=== PATIENT | female | born 1965 | race Caucasian/White ===

== ENCOUNTER 2020-11-13 17:41 | Emergency (ER) | payer MEDICARE, MEDICAID ==
[~2020-11-13] VITALS: Ht 172.7 cm; Wt 90.9 kg
[~2020-11-13 17:41] MED LIST: AMLO10TA55 PO; CARI350T PO; HYDR-3971 PO; METO-408 PO
[2020-11-13 19:45] VITALS: BP 177/78
== END 2020-11-13 19:45 | disposition left against medical advice (07) ==
LOC: EMS 17:46
DX: T40.2X1A Poisoning by other opioids, accidental (unintentional), initial encounter (principal); I10 Essential (primary) hypertension; F17.210 Nicotine dependence, cigarettes, uncomplicated; Y92.89 Other specified places as the place of occurrence of the external cause
CPT/HCPCS: 93005; 99283; 99284

== ENCOUNTER 2024-10-13 15:47 | Inpatient (IN) | payer MEDICAID, MEDICARE, OTHER ==
[~2024-10-13] VITALS: Ht 172.7 cm; Wt 100.0 kg
[2024-10-13] MEDS ORDERED: 0.9% SODIUM CHLORIDE 10 ML SYRINGE IVP PRN (20:30)
[2024-10-13] MEDS: SODIUM CHLORIDE 0.9% 2,000 ML IV ONE (21:00)
[2024-10-13 21:59] LABS: APPEARANCE,URINE HAZY (CLEAR); GLUCOSE, URINE (UA) NEGATIVE (NEGATIVE); LEUKOCYTE ESTERASE ,URINE TRACE (NEGATIVE); NITRATE,URINE NEGATIVE (NEGATIVE); OCCULT BLOOD,URINE NEGATIVE (NEGATIVE); SPECIFIC GRAVITIY, URINE 1.032 (1.003-1.030)
[2024-10-13 22:00] LABS: PLATELET COUNT (AUTO) 212 K/uL (150-450); RED BLOOD CELL COUNT(AUTO) 4.08 MIL/uL (4.00-5.20); RED CELL DISTRIBUTION WIDTH 14.4 % (11.5-14.5); WHITE BLOOD COUNT (AUTO) 7.0 K/uL (4.5-11.0)
[2024-10-13 22:07] LABS: CALCIUM, TOTAL 8.8 mg/dL (8.8-10.5); CREATININE 1.03 mg/dL (0.60-1.30); GLOMERULAR FILTR. RATE CALC 54.0 mL/min (>60); GLUCOSE,RANDOM 91.0 mg/dL (70-110); SODIUM SERUM 142.0 mmol/L (136-145); UREA NITROGEN, BLOOD 17.0 mg/dL (7-18)
[2024-10-13 22:12] LABS: SQUAMOUS EPITHELIAL CELL,UR Few /LPF (None Seen)
[2024-10-13 22:15] LABS: LACTIC ACID 0.6 mmol/L (0.4-2.0)
[2024-10-13] MEDS: VANCOMYCIN 1GM/WATER(PEG/NADA) 200 ML IV ONE (22:52)
[2024-10-13] MEDS ORDERED: ZOLPIDEM TARTRATE 5 MG TABLET PO PRN (23:15)
[2024-10-13] MEDS ORDERED: ACETAMINOPHEN 325 MG TABLET PO PRN (23:15)
[2024-10-13] MEDS ORDERED: MAGNESIUM HYDROXIDE SUSPENSION 30 ML UDCUP PO PRN (23:15)
[2024-10-13] MEDS ORDERED: MORPHINE SULFATE 2 MG/ML SYRINGE IVP PRN (23:15)
[2024-10-13] MEDS ORDERED: HYDROCODONE/ACETAMINOPHEN 5-325 MG TABLET PO PRN (23:15)
[2024-10-13] MEDS ORDERED: BISACODYL 10 MG RECTAL RECTAL SUPPOSITORY PR PRN (23:15)
[2024-10-13] MEDS ORDERED: ONDANSETRON HCL 4 MG/2 ML VIAL IVP PRN (23:15)
[2024-10-14] MEDS: HEPARIN SODIUM,PORCINE 5,000 UNITS/ML VIAL SQ SCH (00:02)
[2024-10-14 03:18] VITALS: BP 172/84; PULSE 67; RESP 20; TEMP 97.7; O2SAT 100
[2024-10-14 07:33] LABS: PLATELET COUNT (AUTO) 189 K/uL (150-450); RED BLOOD CELL COUNT(AUTO) 3.97 MIL/uL (4.00-5.20); RED CELL DISTRIBUTION WIDTH 14.6 % (11.5-14.5); WHITE BLOOD COUNT (AUTO) 5.2 K/uL (4.5-11.0)
[2024-10-14 07:50] LABS: CALCIUM, TOTAL 8.0 mg/dL (8.8-10.5); CREATININE 0.83 mg/dL (0.60-1.30); GLOMERULAR FILTR. RATE CALC > 60 mL/min (>60); GLUCOSE,RANDOM 87 mg/dL (70-110); UREA NITROGEN, BLOOD 15 mg/dL (7-18)
[2024-10-14 07:56] LABS: SODIUM SERUM 143 mmol/L (136-145)
[2024-10-14] MEDS ORDERED: VANCOMYCIN 1GM/WATER(PEG/NADA) 200 ML IV SCH (08:00)
[2024-10-14 08:23] VITALS: BP 119/52; PULSE 64; RESP 19; TEMP 98.2; O2SAT 100
[2024-10-14] MEDS ORDERED: SODIUM CHLORIDE 0.9% 500 ML IV ONE (08:26)
[2024-10-14] MEDS: PANTOPRAZOLE SODIUM 40 MG DR TABLET PO SCH (08:35)
[2024-10-14] MEDS: DOCUSATE SODIUM 100 MG CAPSULE PO SCH (08:35)
[2024-10-14] MEDS: VANCOMYCIN 1.25 GM/WATER(PEG) 250 ML IV SCH (09:14)
[2024-10-14] MEDS ORDERED: BUPR1FIL5 SL (11:40)
[2024-10-14] MEDS ORDERED: COLL1PAC16 TP (11:40)
[2024-10-14] MEDS ORDERED: DULO20CA57 PO (11:46)
[2024-10-14] MEDS ORDERED: HYDR25TA2 PO (11:46)
[2024-10-14] MEDS ORDERED: CARV-165 PO (11:46)
[2024-10-14] MEDS ORDERED: ESTR-95 PO (11:46)
[2024-10-14] MEDS ORDERED: LOSA-382 PO (11:46)
[2024-10-14] MEDS ORDERED: ASPI-1450 PO (11:46)
[2024-10-14] MEDS ORDERED: LEVO25TA9 PO (11:46)
[2024-10-14] MEDS: ASPIRIN 81 MG CHEWABLE TABLET PO SCH (15:57)
[2024-10-14] MEDS: BUPRENORPHINE HCL/NALOXONE HCL 2-0.5 MG SUBLINGUAL TABLET SL SCH (15:57)
[2024-10-14] MEDS: DULoxetine HCL 20 MG CAPSULE PO SCH (16:45)
[2024-10-14 20:09] VITALS: BP_SYST 146; BP_SYST 160; BP_DIAS 75; BP_DIAS 79; PULSE 69; RESP 19; TEMP 97.7; O2SAT 99
[2024-10-15] MEDS: LEVOTHYROXINE SODIUM 25 MCG TABLET PO SCH (06:08)
[2024-10-15 06:29] VITALS: BP 155/73; PULSE 70; RESP 20; TEMP 97.5; O2SAT 97
[2024-10-15 07:18] LABS: PLATELET COUNT (AUTO) 183 K/uL (150-450); RED BLOOD CELL COUNT(AUTO) 4.19 MIL/uL (4.00-5.20); RED CELL DISTRIBUTION WIDTH 14.2 % (11.5-14.5); WHITE BLOOD COUNT (AUTO) 5.3 K/uL (4.5-11.0)
[2024-10-15 07:32] LABS: CALCIUM, TOTAL 8.1 mg/dL (8.8-10.5); CREATININE 0.95 mg/dL (0.60-1.30); GLOMERULAR FILTR. RATE CALC 60.0 mL/min (>60); GLUCOSE,RANDOM 107.0 mg/dL (70-110); SODIUM SERUM 142.0 mmol/L (136-145); UREA NITROGEN, BLOOD 12.0 mg/dL (7-18)
[2024-10-15 08:25] VITALS: BP 132/75; PULSE 64; RESP 19; TEMP 98.2; O2SAT 94
[2024-10-15] MEDS: LOSARTAN POTASSIUM 50 MG TABLET PO SCH (08:56)
[2024-10-15] MEDS ORDERED: LINE600T14 PO (14:49)
== END 2024-10-15 18:55 | DRG 601 ==
LOC: EMS 15:47 → EDH 10-14 00:53 → 6N 10-14 03:05
PROVIDERS: ADMIT Internal Medicine; ATTEND Internal Medicine
DX: N61.0 Mastitis without abscess (principal); I10 Essential (primary) hypertension; G89.29 Other chronic pain; E66.01 Morbid (severe) obesity due to excess calories; Z87.891 Personal history of nicotine dependence; Z68.33 Body mass index [BMI] 33.0-33.9, adult; Z91.199 Patient's noncompliance with other medical treatment and regimen due to unspecified reason; Z87.442 Personal history of urinary calculi; Z98.82 Breast implant status
CPT/HCPCS: 71045; 80048; 81001; 83605; 84145; 85025; 85610; 87040; 93005; 99285; J1644; J7030; J7040; 36415-L1; 36415-TC